=== PATIENT | male | born 1995 | race Caucasian/White ===

== ENCOUNTER 2020-07-14 16:02 | Emergency (ER) | payer OTHER ==
[~2020-07-14] VITALS: Ht 182.9 cm; Wt 70.3 kg
[2020-07-14 18:28] VITALS: BP 153/83
== END 2020-07-14 18:48 | disposition home or self-care (01) ==
LOC: ER 16:02
DX: N50.811 Right testicular pain (principal); N50.9 Disorder of male genital organs, unspecified